=== PATIENT | female | born 1955 | race Caucasian/White ===

== ENCOUNTER 2017-10-24 14:02 | Emergency (ER) | payer MEDICAID ==
[~2017-10-24] VITALS: Ht 165.1 cm; Wt 59.0 kg
[2017-10-24 14:31] LABS: Basophils # (auto) 0 uL; Basophils % (auto) 0.4 % (0.0-2.0); Eosinophils # (auto) 0.1 uL; Eosinophils % (auto) 1.9 % (0.0-7.0); Hematocrit 36.1 % (36.0-46.0); Hemoglobin 12.5 g/dL (12.2-16.2); Lymphocytes # (auto) 1.7 uL; Lymphocytes % (auto) 31.8 % (10.0-50.0); Mean Corpuscular Hgb Conc. 34.7 g/dL (32.0-36.0); Mean Corpuscular Volume 92.1 fL (80.0-100.0); Monocytes # (auto) 0.7 uL; Monocytes % (auto) 12.8 % (0.0-12.0); Neutrophils # (auto) 2.8 uL; Neutrophils % (auto) 53.1 % (37.0-80.0); Nucleated Red Blood Cells % 0.2 %; Platelet Count (auto) 90 10^3/uL (140-450); Red Blood Cells 3.92 10^6/uL (4.0-5.20); Red Cell Distribution Width 13.5 % (11.8-14.3); White Blood Cell 5.3 10^3/uL (4.4-10.8)
[2017-10-24 14:55] LABS: Alanine Aminotransferase 44 U/L (13-56); Albumin 3.8 g/dL (3.4-5.0); Alkaline Phosphatase 69 U/L (45-117); Anion Gap 7 (5-15); Aspartate Aminotransferase 63 U/L (15-37); BUN/Creatinine Ratio 22.1; Bilirubin, Total 1.5 mg/dL (0.2-1.0); Blood Alcohol < 3.0 mg/dL (0-5); Blood Urea Nitrogen 15 mg/dL (7-18); Calcium 8.5 mg/dL (8.5-10.1); Carbon Dioxide 25 mmol/L (21-32); Chloride 105 mmol/L (98-107); GFR African American 112 mL/min; GFR Non-African American 93 mL/min; Glucose 114 mg/dL (74-106); Potassium 3.7 mmol/L (3.5-5.1); Sodium 137 mmol/L (136-145); Total Protein 7.9 g/dL (6.4-8.2)
[2017-10-24 19:56] VITALS: BP 145/76
== END 2017-10-24 19:59 | disposition home or self-care (01) ==
LOC: EDBD 14:02 → ER 14:04
DX: F41.9 Anxiety disorder, unspecified (principal); F20.9 Schizophrenia, unspecified; F31.9 Bipolar disorder, unspecified
CPT/HCPCS: 36415; 80053; 80320; 85025; 93005

== ENCOUNTER 2017-10-26 18:04 | Emergency (ER) | payer MEDICAID ==
[~2017-10-26] VITALS: Ht 160 cm; Wt 52.2 kg
[2017-10-26 21:22] VITALS: BP 140/80
== END 2017-10-26 23:28 | disposition home or self-care (01) ==
LOC: ER 18:04
DX: S33.5XXA Sprain of ligaments of lumbar spine, initial encounter (principal); M79.1 Myalgia; M54.17 Radiculopathy, lumbosacral region; M47.9 Spondylosis, unspecified; Z88.0 Allergy status to penicillin; X58.XXXA Exposure to other specified factors, initial encounter; Y93.89 Activity, other specified; Y99.8 Other external cause status; Y92.89 Other specified places as the place of occurrence of the external cause
CPT/HCPCS: 72131